=== PATIENT | male | born 1975 | race Caucasian/White ===

== ENCOUNTER 2016-11-04 17:13 | Emergency (ER) ==
[2016-11-04] MEDS ORDERED: PREDNISONE PO ONE (19:21)
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
[2016-11-04 19:54] VITALS: BP 149/104
--- NOTE | 2016-11-05 08:19 | Diag Imaging Result Document ---
PROCEDURE NAME: LUMBAR SPINE - 11/04/2016 LUMBAR SPINE AP AND LATERAL WITH OBLIQUES, SIX VIEWS: FINDINGS: No compressed vertebra. No subluxation. No other fracture. There are mild degenerative bone spurs. There is a vacuum disk at L5-S1. IMPRESSION: No acute bony injury.
--- NOTE | 2016-11-05 08:33 | Diag Imaging Result Document ---
PROCEDURE NAME: CERVICAL SPINE W/O CONTRAST - 11/04/2016 CT CERVICAL SPINE WITHOUT CONTRAST: FINDINGS: There is good alignment to the cervical spine. No precervical soft tissue swelling. No subluxation. No fracture. Minimal degenerative changes in the mid cervical spine. IMPRESSION: No acute bony injury. A preliminary report was given at 7:10 p.m..
== END 2016-11-04 20:01 | disposition home or self-care (01) ==
LOC: ED 17:13
DX: S16.1XXA Strain of muscle, fascia and tendon at neck level, initial encounter (principal); S39.012A Strain of muscle, fascia and tendon of lower back, initial encounter; M54.2 Cervicalgia; M54.5 Low back pain; R20.0 Anesthesia of skin; M79.1 Myalgia; V43.62XA Car passenger injured in collision with other type car in traffic accident, initial encounter
CPT/HCPCS: 72110; 72125; J7512